=== PATIENT | female | born 1935 | race Caucasian/White ===

== ENCOUNTER 2018-02-14 09:06 | Outpatient (CLI) | payer MEDICARE, OTHER ==
[2018-02-14] MEDS ORDERED: Iopamidol 370 76% 100 ML VIAL ONE (10:09)
--- NOTE | 2018-02-14 12:46 | CT ---
CT ABDOMEN AND PELVIS WITH AND WITHOUT IV CONTRAST WITH ENTEROGRAPH PROTOCOL: HISTORY: Abdominal pain. Colon cancer. Multiple previous abdominal surgeries. COMPARISON: 12/27/2016 FINDINGS: Calcified granulomata and mild atelectasis at the lung bases. The gallbladder, appendix, and uterus are surgically absent. At the superior pole of the right kidney is a 0.4 cm calculus in a nondilated calyx. A 0.3 cm calculus is present at the superior pole left kidney. Extrarenal pelvis left kidne y. Prominent degenerative changes lumbar spine. Postoperative changes anterior abdominal wall and rectum. Stranding within the presacral fat is stab le compared to exams back to 12/27/2006. Enterography protocol includes high volume water oral contrast and arterial and venous phase imaging. There is uniform enhancement of the small bowel wall without evidence of inflammation. In the righ t lower quadrant, there is subtle fatty infiltration of a pouch of posterior cecum that projects post eriorly from the cecal base. That loop mimics the terminal ileum, which is seen elsewhere and to hav e a normal appearance. IMPRESSION: 1. Postoperative changes. No evidence of bowel inflammation or other acute bowel abnormality. 2. Nonobstructing bilateral renal calculi. POS: [facility]
== END 2018-02-14 09:07 | disposition home or self-care (01) ==
LOC: CT 09:06
PROVIDERS: ATTEND Internal Medicine Gastroenterology
DX: D64.9 Anemia, unspecified (principal); R10.10 Upper abdominal pain, unspecified; N20.0 Calculus of kidney; Z87.19 Personal history of other diseases of the digestive system; Z85.038 Personal history of other malignant neoplasm of large intestine; Z90.49 Acquired absence of other specified parts of digestive tract; Z98.890 Other specified postprocedural states
CPT/HCPCS: 74178; 82565